=== PATIENT | female | born 1970 | race Caucasian/White ===

== ENCOUNTER 2019-05-21 15:40 | Emergency (ER) | payer MEDICAID ==
[~2019-05-21] VITALS: Ht 167.6 cm; Wt 81.6 kg
[2019-05-21 15:45] VITALS: Ht 167.6 cm; Wt 81.6 kg
[2019-05-21 16:45] LABS: AMPHETAMINE QUAL UR NONE DETECTED (See below)
[2019-05-21 17:27] VITALS: BP 118/71
== END 2019-05-21 17:27 | disposition home or self-care (01) ==
LOC: ED 15:40
DX: N39.0 Urinary tract infection, site not specified (principal); R06.02 Shortness of breath; E11.9 Type 2 diabetes mellitus without complications; E03.9 Hypothyroidism, unspecified; Z98.890 Other specified postprocedural states